=== PATIENT | female | born 1975 | race Two or more races ===

== ENCOUNTER 2016-03-25 00:47 | Inpatient (IN) | payer MEDICAID ==
[~2016-03-25] VITALS: Ht 165.1 cm; Wt 116.3 kg
[2016-03-25 01:33] LABS: Basophils # (auto) 0 uL; Basophils % (auto) 0.5 % (0.0-2.0); DEFINITIVE VIEW TRANSMISSION; Eosinophils # (auto) 0.1 uL; Eosinophils % (auto) 1.1 % (0.0-7.0); Hematocrit 36.9 % (36.0-46.0); Hemoglobin 11.6 g/dL (12.2-16.2); Lymphocytes # (auto) 2.3 uL; Lymphocytes % (auto) 24.1 % (10.0-50.0); Mean Corpuscular Hemoglobin 23.3 pg (28.0-32.0); Mean Corpuscular Hgb Conc. 31.6 g/dL (32.0-36.0); Mean Corpuscular Volume 73.7 fL (80.0-100.0); Mean Platelet Volume 10.7 fL (7.4-10.4); Monocytes # (auto) 0.5 uL; Neutrophils # (auto) 6.6 uL; Neutrophils % (auto) 69.3 % (37.0-80.0); Platelet Count (auto) 277 10^3/uL (140-450); Red Cell Distribution Width 18.3 % (11.6-16.0); White Blood Cell 9.5 10^3/uL (4.4-10.8)
[2016-03-25 01:41] LABS: Temperature: 21.9 C (20.0-25.0)
[2016-03-25 01:45] LABS: INR 1.08 (0.9-1.15); Prothrombin Time 11.1 sec (9.37-12.3)
[2016-03-25 01:50] LABS: Albumin 3.2 g/dL (3.4-5.0); BUN/Creatinine Ratio 23.5; Calcium 7.8 mg/dL (8.5-10.1); Magnesium 1.6 mg/dL (1.6-2.6)
[2016-03-25 01:57] LABS: Bilirubin, Total 0.3 mg/dL (0.2-1.0); Total Protein 6.4 g/dL (6.4-8.2)
[2016-03-25 02:49] LABS: Urine Bilirubin Negative (Negative); Urine Blood TRACE /uL (Negative); Urine Color Yellow (Yellow); Urine Glucose Normal (Normal); Urine Ketone Negative (Negative); Urine Nitrite Negative (Negative); Urine RBC <1 /hpf (0 - 4); Urine Squamous Epithelial Cell FEW /hpf (<5); Urine Urobilinogen Normal (Negative)
[2016-03-25] MEDS ORDERED: SODIUM CHLORIDE 0.9% 1,000 ML IV ONE (08:56)
[2016-03-25] MEDS ORDERED: FUROSEMIDE 40 MG/4 ML VIAL IV ONE (09:00)
[2016-03-25] MEDS ORDERED: InsuLIN REG 1unit/0.01ml Soln (100units/ml) IV ONE (09:00)
[2016-03-25] MEDS ORDERED: ENOXAPARIN SOD 120 MG/0.8 ML SYRINGE SC ONE (09:00)
[2016-03-25] MEDS ORDERED: ASPirin 325 MG TAB PO ONE (09:00)
[2016-03-25] MEDS ORDERED: NITROGLYCERIN 0.4 MG SL TAB SL PRN (09:15)
[2016-03-25] MEDS ORDERED: MORPHINE SULF INJ 2 MG/ML SYRINGE 1ML IV PRN ×2 (09:15)
[2016-03-25] MEDS ORDERED: LACTULOSE 20Gm/30ML SOLN PO PRN (09:15)
[2016-03-25] MEDS ORDERED: TEMAZEPAM 15 MG CAP PO PRN (09:15)
[2016-03-25] MEDS ORDERED: HYDROcodone-ACET 5/325MG TAB PO PRN (09:15)
[2016-03-25] MEDS ORDERED: PROMETHAZINE HCL 25 MG/ML 1ML IV PRN (09:15)
[2016-03-25] MEDS ORDERED: DEXTROSE (50%) 50ML SYRG IV PRN (09:15)
[2016-03-25] MEDS ORDERED: CARVEDILOL 3.125 MG TAB PO SCH (10:00)
[2016-03-25] MEDS: ASPirin 81 mg TAB PO SCH (10:00)
[2016-03-25] MEDS: NITROGLYCERIN 0.2MG/HR TOPICAL PATCH TD SCH (10:00)
[2016-03-25] MEDS: ENOXAPARIN SOD 40 MG/0.4 ML SYRINGE SC SCH (10:00)
[2016-03-25] MEDS ORDERED: ENALAPRIL MALEATE 2.5 MG TAB PO SCH (10:00)
[2016-03-25] MEDS ORDERED: FUROSEMIDE 40 MG/4 ML VIAL IV SCH (10:00)
[2016-03-25 10:05] VITALS: BP 112/72
[2016-03-25] MEDS: POTASSIUM CHL 20 Meq TABLET PO SCH (11:14)
[2016-03-25] MEDS: ACCU-CHEK COMFORT CURVE STRIP VI SCH ×3 (11:49→22:00)
[2016-03-25] MEDS: InsuLIN REG 1unit/0.01ml Soln (100units/ml) SC SCH ×3 (11:49→21:04)
[2016-03-25] MEDS ORDERED: CLOPIDOGREL BISULFATE 75 MG TAB PO ONE (12:00)
[2016-03-25] MEDS ORDERED: INSUINJ37 SUBCUT (14:11)
[2016-03-25] MEDS ORDERED: ASPI-498 OR (15:27)
[2016-03-25] MEDS ORDERED: NAPR-476 PO (15:28)
[2016-03-25] MEDS ORDERED: FURO40TA4 PO (15:31)
[2016-03-25 16:59] VITALS: BP 101/65
[2016-03-25] MEDS: ACETAMINOPHEN 500 MG TAB PO PRN (20:55)
[2016-03-25] MEDS: LORazepam 0.5 MG TAB PO PRN (20:55)
[2016-03-25 21:46] VITALS: BP 103/73
[2016-03-26 04:54] VITALS: BP 104/56
[2016-03-26 06:02] LABS: Basophils # (auto) 0 uL; Basophils % (auto) 0.3 % (0.0-2.0); DEFINITIVE VIEW TRANSMISSION; Eosinophils # (auto) 0.1 uL; Hematocrit 34.6 % (36.0-46.0); Hemoglobin 10.9 g/dL (12.2-16.2); Lymphocytes # (auto) 1.8 uL; Lymphocytes % (auto) 21.8 % (10.0-50.0); Mean Corpuscular Hgb Conc. 31.4 g/dL (32.0-36.0); Mean Corpuscular Volume 73.3 fL (80.0-100.0); Monocytes # (auto) 0.4 uL; Monocytes % (auto) 5.2 % (0.0-12.0); Neutrophils # (auto) 5.8 uL; Neutrophils % (auto) 71.7 % (37.0-80.0); Platelet Count (auto) 250 10^3/uL (140-450); Red Cell Distribution Width 18.7 % (11.6-16.0); White Blood Cell 8.1 10^3/uL (4.4-10.8)
[2016-03-26] MEDS: InsuLIN REG 1unit/0.01ml Soln (100units/ml) SC SCH ×2 (06:08→11:30)
[2016-03-26 06:20] LABS: Albumin 2.9 g/dL (3.4-5.0); BUN/Creatinine Ratio 22.9; Bilirubin, Total 0.5 mg/dL (0.2-1.0); Potassium 3.6 mmol/L (3.5-5.1); Total Protein 5.6 g/dL (6.4-8.2)
[2016-03-26] MEDS: ACCU-CHEK COMFORT CURVE STRIP VI SCH ×2 (06:55→11:58)
[2016-03-26 07:08] LABS: B-Type Natriuretic Peptide 790.53 pg/mL (0-100); Temperature: 22.5 C (20.0-25.0)
[2016-03-26 09:00] VITALS: BP 132/69
[2016-03-26] MEDS: ACETAMINOPHEN 500 MG TAB PO PRN (09:23)
[2016-03-26] MEDS: POTASSIUM CHL 20 Meq TABLET PO SCH (09:31)
[2016-03-26] MEDS: ASPirin 81 mg TAB PO SCH (09:31)
[2016-03-26] MEDS: ENOXAPARIN SOD 40 MG/0.4 ML SYRINGE SC SCH (09:33)
[2016-03-26] MEDS ORDERED: CLOPIDOGREL BISULFATE 75 MG TAB PO SCH (10:00)
[2016-03-26] MEDS: NITROGLYCERIN 0.2MG/HR TOPICAL PATCH TD SCH (10:00)
[2016-03-26] MEDS ORDERED: amLODIPine BESYLATE 5 MG TAB PO SCH (10:00)
[2016-03-26] MEDS: LORazepam 0.5 MG TAB PO PRN (12:23)
[2016-03-26 13:00] VITALS: BP 111/77
[2016-03-26 17:09] VITALS: BP 113/72
== END 2016-03-26 18:27 | disposition home or self-care (01) | DRG 190 ==
LOC: ER 00:50 → TELE 00:51 → TELE-E-ADS 10:34 → TELE-EAST 10:57
PROVIDERS: ADMIT Internal Medicine; ATTEND Internal Medicine
DX: I21.4 Non-ST elevation (NSTEMI) myocardial infarction (principal); I50.43 Acute on chronic combined systolic (congestive) and diastolic (congestive) heart failure; E66.01 Morbid (severe) obesity due to excess calories; E11.9 Type 2 diabetes mellitus without complications; I10 Essential (primary) hypertension; E78.5 Hyperlipidemia, unspecified; Z82.49 Family history of ischemic heart disease and other diseases of the circulatory system; Z83.3 Family history of diabetes mellitus; Z98.890 Other specified postprocedural states; Z80.9 Family history of malignant neoplasm, unspecified; Z68.41 Body mass index [BMI] 40.0-44.9, adult
CPT/HCPCS: 36415; 71010; 71275; 80053; 80061; 81001; 81025; 82550; 82962; 83036; 83735; 83880; 84443; 84484; 85025; 85049; 85379; 85610; 85730; 87081; 93005; 93306; 96372; 96374; 99291; G0434; J1815

== ENCOUNTER 2018-06-14 20:49 | Inpatient (IN) | payer MEDICAID | END 2018-06-16 19:08 | disposition home or self-care (01) | LOC: ER 20:49 → TELE 06-15 06:57 → TELE-WESTW 06-15 10:27 | DX: I20.9 Angina pectoris, unspecified (principal); I11.0 Hypertensive heart disease with heart failure; E11.65 Type 2 diabetes mellitus with hyperglycemia; I50.9 Heart failure, unspecified; H60.92 Unspecified otitis externa, left ear; Z95.0 Presence of cardiac pacemaker ==